=== PATIENT | male | born 2000 | race Caucasian/White ===

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

== ENCOUNTER → 2021-03-31 | Outpatient (CLI) | payer OTHER ==
[~2021-03-31] MED LIST: CYCLOBENZAPRINE10 M1 PO; TESSALON PERLE100 M1 PO; VOLTAREN 75 DR75 MG PO; ZITHROMAX 250M250 MG PO
[2021-03-31 17:48] LABS: BASO # 0.06 (0.02-0.10); EOS # 0.12 (0.04-0.40); EOS % 1.2 % (0.0-4.0); HEMATOCRIT 45.1 % (36.0-47.0); HEMOGLOBIN 15.2 g/dL (12.5-16.1); LYMPH# 2.06 (1.50-4.00); MEAN CELL VOLUME 92 fl (78-95); MEAN CORPUSCULAR HEMOGLOBIN 31 pg (26-32); MEAN CORPUSCULAR HGB CONC 34 g/dL (33-37); MEAN PLATELET VOLUME 10.1 fl (7.4-10.4); MONO # 0.84 (0.20-0.80); NEU # 6.58 (1.40-6.50); PLATELET COUNT 249 K/mm3 (130-400); RED BLOOD COUNT 4.92 M/mm3 (4.20-5.60); RED CELL DISTRIBUTION WIDTH 12.1 % (11.5-14.5); WHITE BLOOD COUNT 9.7 K/mm3 (4.8-10.8)
[2021-03-31 17:57] LABS: ALBUMIN 4.4 g/dL (3.5-5.0); POTASSIUM 4.2 mmol/L (3.5-5.1); SODIUM 138 mmol/L (136-145)
[2021-03-31 17:59] LABS: GLUCOSE 82 mg/dL (75-110)
[2021-03-31 18:00] LABS: TOTAL PROTEIN 7.8 g/dL (6.4-8.3)
[2021-03-31 18:01] LABS: CARBON DIOXIDE 28 mmol/L (22-29); TOTAL BILIRUBIN 0.9 mg/dL (0.2-1.2)
[2021-03-31 18:05] LABS: AST-SGOT 22 U/L (5-34)
[2021-03-31 18:06] LABS: ALT/SGPT 20 U/L (0-55)
== END ==
LOC: LAB 17:36
PROVIDERS: Nurse Practitioner
DX: M25.50 Pain in unspecified joint (principal)

== ENCOUNTER → 2021-04-07 | Outpatient (CLI) | payer OTHER | LOC: LAB 09:48 | DX: S76.111D Strain of right quadriceps muscle, fascia and tendon, subsequent encounter (principal) ==

== ENCOUNTER 2021-04-27 22:01 | Emergency (ER) | payer OTHER ==
[~2021-04-27 22:01] MED LIST changes: -CYCLOBENZAPRINE10 M1 PO; -VOLTAREN 75 DR75 MG PO
[2021-04-27] MEDS ORDERED: CYCLOBENZAPRINE10 M1 PO (22:26)
[2021-04-27] MEDS ORDERED: VOLTAREN 75 DR75 MG PO (22:26)
[2021-04-27 23:26] VITALS: BP 133/80
== END 2021-04-27 23:26 | disposition home or self-care (01) ==
LOC: ED 22:01
DX: F41.9 Anxiety disorder, unspecified (principal); J45.909 Unspecified asthma, uncomplicated

== ENCOUNTER 2021-04-29 09:41 | Outpatient (RCR) | payer OTHER ==
[~2021-04-29 09:41] MED LIST changes: +CYCLOBENZAPRINE10 M1 PO; +VOLTAREN 75 DR75 MG PO
== END 2021-07-28 | disposition home or self-care (01) ==
LOC: PT
DX: Z00.00 Encounter for general adult medical examination without abnormal findings (principal); F90.2 Attention-deficit hyperactivity disorder, combined type; F32.9 Major depressive disorder, single episode, unspecified; G47.09 Other insomnia

== ENCOUNTER 2021-11-14 16:04 | Emergency (ER) | payer SELFPAY ==
[~2021-11-14] VITALS: Ht 170.2 cm; Wt 87.3 kg
[2021-11-14 16:23] VITALS: BP 120/80
[2021-11-14] MEDS ORDERED: GOOD NEIGHBOR P20 M1 PO (16:58)
== END 2021-11-14 17:11 | disposition home or self-care (01) ==
LOC: ED 16:04
DX: K21.9 Gastro-esophageal reflux disease without esophagitis (principal); R09.89 Other specified symptoms and signs involving the circulatory and respiratory systems

== ENCOUNTER 2024-02-24 21:30 | Emergency (ER) | payer SELFPAY ==
[~2024-02-24 21:30] MED LIST changes: +GOOD NEIGHBOR P20 M1 PO; +Ketorolac 30 MG/ML VIAL IM ONE
== END 2024-02-24 23:09 | disposition home or self-care (01) ==
LOC: ED 21:30
DX: M25.562 Pain in left knee (principal)
CPT/HCPCS: J1885